=== PATIENT | female | born 2000 | race Hispanic/Latino ===

== ENCOUNTER 2020-05-28 05:43 | Day surgery (SDC) | payer OTHER ==
[2020-05-23 12:03] LABS: BASOPHILS % (AUTO) 0.5 % (0.0-5.0); EOSINOPHILS % (AUTO) 1.2 % (0.0-8.0); HEMATOCRIT 42.1 % (36-48); LYMPHOCYTES % (AUTO) 14.5 % (21.0-51.0); MEAN CORPUSCULAR HEMOGLOBIN 27.1 pg (27.0-33.0); MEAN CORPUSCULAR HGB CONC 32.5 g/dL (32.0-36.0); MEAN CORPUSCULAR VOLUME 83.4 fL (79-99); MONOCYTES % (AUTO) 5.2 % (3.0-13.0); NEUTROPHILS % (AUTO) 78.2 % (40.0-77.0); PLATELET COUNT (AUTO) 343 K/uL (130-400); RED BLOOD CELL COUNT(AUTO) 5.05 MIL/uL (4.00-5.50); RED CELL DISTRIBUTION WIDTH 13.6 % (11.0-15.5); WHITE BLOOD COUNT (AUTO) 12.9 K/uL (4.8-10.8)
[2020-05-24 11:26] VITALS: BP 137/81
--- NOTE | 2020-05-27 12:44 | NUR ---
DR. MILLER NOTIFIED OF ELEVATED WBC LEVEL. INFORMED HIM PT HAD RECENT DENTAL WORK AND WAS ON AMOXICILLIN. NO NEW ORDERS. OK TO PROCEED.
[~2020-05-28] VITALS: Ht 165.1 cm; Wt 119.4 kg
[2020-05-28] VITALS (18 sets, daily range): BP systolic 138–161; BP diastolic 70–98
[~2020-05-28 05:43] MED LIST: AMOX500T2 PO
[2020-05-28] MEDS: LACTATED RINGERS 1000ML 1,000 ML IV SCH ×2 (07:25→10:30)
[2020-05-28] MEDS ORDERED: DEXAMETHASONE SOD PHOSPHATE 10MG/ML 1ML VIAL ONE (08:19)
[2020-05-28] MEDS ORDERED: LIDOCAINE PF 2% 5ML ABBOJECT ONE (08:19)
[2020-05-28] MEDS ORDERED: SUCCINYLCHOLINE CHLORIDE 20 MG/ML 10 ML VIAL ONE (08:19)
[2020-05-28] MEDS ORDERED: ONDANSETRON HCL 4 MG/2 ML VIAL ONE (08:20)
[2020-05-28] MEDS ORDERED: MIDAZOLAM HCL 1 MG/ML 2ML VIAL ONE (08:20)
[2020-05-28] MEDS ORDERED: PROPOFOL 10 MG/ML 20ML VIAL IV ONE ×2 (08:20→08:21)
[2020-05-28] MEDS ORDERED: GLYCOPYRROLATE 1 MG/5 ML SYRINGE ONE (08:20)
[2020-05-28] MEDS ORDERED: NEOSTIGMINE 5MG/5ML SYR IV ONE (08:20)
[2020-05-28] MEDS ORDERED: ROCURONIUM 10MG/1ML SYR 10 MG/ML ML ONE ×2 (08:20→09:44)
[2020-05-28] MEDS ORDERED: FENTANYL CITRATE PF 50 MCG/1 ML 2ML VIAL ONE ×4 (08:21→10:08)
--- NOTE | 2020-05-28 12:10 | NUR ---
REPORT RECEIVED PT AND REPORT FROM [facility]. PT IN NO DISTRESS AT THIS TIME. ORIENTED TO ROOM AND CALL LIGHT. PT INSTRUCTED TO CALL FOR ASSISTANCE AND VOICED UNDERSTANDING. PT HAS BANDAIDS X4 TO ABDOMEN CLEAN AND DRY AT THIS TIME. WILL CONTINUE TO MONITOR PT
--- NOTE | 2020-05-28 13:00 | NUR ---
DISCHARGE PT AND SIGNIFICANT OTHER GIVEN DISCHARGE INSTRUCTIONS AND BOTH VOICED UNDERSTANDING. SCRIPT GIVEN. SURGICAL SITES FREE FROM BLEEDING AND BANDAIDS X4 DRY AND INTACT. PT TAKEN OUT VIA W/C BY [facility] IN NO DISTRESS
== END 2020-05-28 13:00 | disposition home or self-care (01) ==
LOC: DAH 05:43
PROVIDERS: ATTEND Obstetrics & Gynecology
DX: N70.11 Chronic salpingitis (principal); D27.1 Benign neoplasm of left ovary; N73.6 Female pelvic peritoneal adhesions (postinfective); E66.01 Morbid (severe) obesity due to excess calories; I10 Essential (primary) hypertension; E78.5 Hyperlipidemia, unspecified; E11.9 Type 2 diabetes mellitus without complications; M06.9 Rheumatoid arthritis, unspecified; Z11.59 Encounter for screening for other viral diseases; Z86.73 Personal history of transient ischemic attack (TIA), and cerebral infarction without residual deficits; Z68.41 Body mass index [BMI] 40.0-44.9, adult; Z90.49 Acquired absence of other specified parts of digestive tract
CPT/HCPCS: 36415 ×2; 58661; 58662; 84703; 85025; 86850; 86900; 86901; A4215 ×3; A4221; A4222; A4223; A4344; A4351; A4606; A4649; A4663; A6260; C1769 ×4; J0330; J1100; J2001; J2250; J2405; J2704 ×2; J2710; J3010 ×4; J3490; J7030; J7120 ×2; U0003

== ENCOUNTER 2025-09-09 18:58 | Inpatient (IN) | payer OTHER ==
[~2025-09-09] VITALS: Ht 165.1 cm; Wt 119.7 kg
[~2025-09-09 18:58] MED LIST changes: +0.9%NACL 50ML IV SCH
--- NOTE | 2025-09-09 19:14 | ERN ---
ED Note History of Present Illness Stated Complaint: ABD PAIN Chief Complaint: Abdominal Pain Time Seen by MD: 19:05 Dictation: PATIENT IS A 25-YEAR-OLD FEMALE COMING IN TODAY WITH EPIGASTRIC PAIN AND RIGHT FLANK PAIN THAT RADIATES TO EPIGASTRIC AND RIGHT LOWER QUADRANT ONSET LAST NIGHT AT 01:00. SHE STATES SHE HAD GONE TO SLEEP WHEN IT WOKE HER UP WITH A VOMITING IN THE PAIN. SHE STATES IT HAS BEEN INTERMITTENT AND COLICKY. SHE DENIES FEVER CHILLS NO DIARRHEA. Allergies: Coded Allergies: No Known Drug Allergies (Verified Allergy, Unknown, 05/23/20) Home Meds Reported Medications Amoxicillin (Amoxicillin) 500 Mg Tablet, 500 MG PO TID for RECENT TOOTH EXTRACTION for 10 Days, TAB 05/27/20 Past Medical History Past Medical History: No Pertinent History Surgical History: Appendectomy, BTL LMP: Sep 02, 2025 RN Note Reviewed/Agreed w/PFSH: Yes Review of System Dictation CONSTITUTIONAL: NEGATIVE EXCEPT FOR HPI HEAD/FACE: NEGATIVE EXCEPT FOR HPI EENT: NEGATIVE EXCEPT FOR HPI RESPIRATORY: NEGATIVE EXCEPT FOR HPI GASTROINTESTINAL/ABDOMINAL: NEGATIVE EXCEPT FOR HPI EPIGASTRIC PAIN WITH RIGHT FLANK PAIN THAT RADIATES TO RIGHT UPPER AND LOWER QUADRANT NAUSEA AND VOMITING GENITOURINARY: NEGATIVE EXCEPT FOR HPI MUSCULOSKELETAL: NEGATIVE EXCEPT FOR HPI INTEGUMENTARY: NEGATIVE EXCEPT FOR HPI NEUROLOGICAL/PSYCH: NEGATIVE EXCEPT FOR HPI HEMATOLOGIC/LYMPHATIC: NEGATIVE EXCEPT FOR HPI ALL SYSTEMS NEGATIVE, EXCEPT NOTED ABOVE. 13 POINT REVIEW OF SYSTEMS ASSESSED AND ALL NEGATIVE EXCEPT FOR ABOVE. Initial Vital Sign VS Vital Signs Date Time Temp Pulse Resp B/P (MAP) Pulse Ox O2 Delivery O2 Flow Rate FiO2 09/09/25 19:05 98.1 60 20 141/63 99 Room Air 09/09/25 19:12 0 21 Physical Exam Dictation VITAL SIGNS REVIEWED GENERAL APPEARANCE: ALERT, ORIENTED X 3, MODERATE TO SEVERE ACUTE DISTRESS, WELL DEVELOPED, NOURISHED. OBESE HEAD AND FACE: NON-TRAUMATIC. EYES: PERRL, PINK CONJUNCTIVAS, EYELID NO TRAUMA, ANTERIOR CHAMBER WITH ARCUS SENILIS. EARS: PINNAS INTACT AND NO SIGNS OF TRAUMA OR ERYTHEMA EAR CANALS CLEAR AND NO DISCHARGE TM NO ERYTHEMA NOSE: NO DISCHARGE, NO BLEEDING. OROPHARYNX: MOUTH NORMAL, TONGUE PINK, PHARYNX CLEAR,NO ERYTHEMA, TONSILS NO EXUDATES, NO ABSCESSES NOTED, MUCOUS MEMBRANE MOIST NECK: SUPPLE, NON-TENDER, NO THYROMEGALY, NO MASSES, NO JVD, NO BRUITS BREAST:DEFERRED CHEST:NO TENDERNESS, NO CREPITUS, NO PARADOXICAL MOVEMENT, NO RETRACTIONS LUNGS:CLEAR, WELL-VENTILATED, SYMMETRIC, NO RALES, NO WHEEZING, NO RHONCHI, NO STRIDOR, GOOD BREATH SOUNDS BILATERALLY HEART: REGULAR RATE, REGULAR RHYTHM, NO MURMUR, NO GALLOPS VASCULAR: NO PERIPHERAL EDEMA, ABDOMEN: SOFT, POSITIVE BOWEL SOUNDS, NONDISTENDED, NO GUARDING, MODERATE EPIGASTRIC TENDERNESS WITH PALPATION. POSITIVE RIGHT CVAT RECTAL: DEFERRED GENITAL: DEFERRED NEUROLOGICAL: NORMAL SPEECH, MOTOR FUNCTION INTACT, SENSORY FUNCTION INTACT MUSCULOSKELETAL: NECK NONTENDER, FULL RANGE OF MOTION, BACK NONTENDER, FULL RANGE OF MOTION, EXTREMITIES: NONTENDER, FULL RANGE OF MOTION SKIN: COLOR PINK, DRY, NO TURGOR, NO RASH, NO LACERATIONS, NO ABRASIONS, NO CONTUSIONS. LYMPHATIC: DEFERRED Results (Laboratory/Radiology) Laboratory/Radiology Laboratory Tests Test 09/09/25 19:10 09/09/25 19:20 09/09/25 20:14 Urine Color YELLOW (YELLOW) Urine Appearance CLEAR (CLEAR) Urine pH 6.0 (5.0-8.0) Urine Specific Ross 1.033 (1.001-1.031) Urine Protein 20 mg/dL (NEGATIVE) H Urine Glucose (UA) NEGATIVE mg/dL (NEGATIVE) Urine Ketones NEGATIVE mg/dL (NEGATIVE) Urine Occult Blood SMALL (NEGATIVE) H Urine Nitrate NEGATIVE (NEGATIVE) Urine Bilirubin NEGATIVE mg/dL (NEGATIVE) Urine Urobilinogen 0.2 mg/dL (0.2-1.0) Urine Leukocyte Esterase NEGATIVE Romy/uL Urine RBC 6-10 /HPF (0-1) H Urine WBC 2-5 /HPF (0-1) H Urine Squamous Epithelial Cells FEW /HPF (0-2) Urine Bacteria RARE /HPF (None Seen) White Blood Count 17.2 K/uL (4.8-10.8) H Red Blood Count 4.94 MIL/uL (4.00-5.50) Hemoglobin 13.2 g/dL (12.0-16.0) Hematocrit 39.3 % (36-48) Mean Corpuscular Volume 79.6 fL (79-99) Mean Corpuscular Hemoglobin 26.7 pg (27.0-33.0) L Mean Corpuscular Hemoglobin Concent 33.6 g/dL (32.0-36.0) Red Cell Distribution Width 13.6 % (11.0-15.5) Platelet Count 406 K/uL (130-400) H Mean Platelet Volume 11.3 fL (7.5-10.5) H Immature Granulocyte % (Auto) 0.3 % (0-1) Neutrophils (%) (Auto) 80.1 % (40.0-77.0) H Lymphocytes (%) (Auto) 13.2 % (21.0-51.0) L Monocytes (%) (Auto) 5.5 % (3.0-13.0) Eosinophils (%) (Auto) 0.6 % (0.0-8.0) Basophils (%) (Auto) 0.3 % (0.0-5.0) Neutrophils # (Auto) 13.7 K/uL (1.8-7.7) H Lymphocytes # (Auto) 2.3 K/uL (1.0-4.8) Monocytes # (Auto) 0.9 K/uL (0.1-1.0) Eosinophils # (Auto) 0.11 K/uL (0.00-0.70) Basophils # (Auto) 0.06 K/uL (0.00-0.20) Absolute Immature Granulocyte (auto 0.05 K/uL (0-1) Nucleated Red Blood Cells 0.0 % (0.0-0.19) Sodium Level 139 mmol/L (136-145) Potassium Level 3.3 mmol/L (3.5-5.1) L Chloride Level 103 mmol/L (101-111) Carbon Dioxide Level 29 mmol/L (21-32) Blood Urea Nitrogen 8 mg/dL (7-18) Creatinine 0.6 mg/dL (0.5-1.0) Glomerular Filtration Rate Calc 126 mL/min (>90) Random Glucose 114 mg/dL (70-105) H Total Calcium 9.2 mg/dL (8.5-10.1) Lipase 29 U/L (16-77) Serum Test, Qualitative NEGATIVE (NEGATIVE) Lactic Acid Level 1.8 mmol/L (0.8-2.5) Total Bilirubin 0.6 mg/dL (0.2-1.0) Direct Bilirubin 0.1 mg/dL (0.0-0.3) Aspartate Amino Transf (AST/SGOT) 30 U/L (10-37) Alanine Aminotransferase (ALT/SGPT) 30 U/L (12-78) Alkaline Phosphatase 79 U/L (50-136) Total Protein 7.4 g/dL (6.0-8.3) Albumin 3.6 g/dL (3.5-5.0) REASON: RIGHT FLANK PAIN THAT RADIATES TO EPIGASTRIC AND RIGHT LOWER QUADRANT ORDERING PHYSICIAN: ADDY RAMOS FRONT END ARCHITECT PROCEDURE: ABD PEL WO - CT ABDOMEN/PELVIS W/O CONTRAST EXAM: CT Abdomen and Pelvis Without IV Contrast. CLINICAL HISTORY: Patient presents with right flank pain radiating to the epigastric and right lower quadrants. TECHNIQUE: Axial computed tomography images of the abdomen and pelvis were obtained without intravenous contrast. CONTRAST: No IV contrast administered. COMPARISON: None provided. FINDINGS: LUNG BASES: Clear. No pleural effusion. LIVER: Mild hepatomegaly with the right hepatic lobe measuring up to 24.6 cm in craniocaudal dimension. Diffuse hepatic steatosis. A 2.2 ??? 1.5 ??? 2.3 cm peripheral isodense lesion in the right hepatic lobe, likely representing focal fatty sparing. GALLBLADDER AND BILE DUCTS: Mild diffuse gallbladder wall thickening and pericholecystic fatty stranding and heterogeneous gallbladder contents, concerning acute cholecystitis, no radiodense calculus is evident. No biliary ductal dilatation. PANCREAS: Normal in size and contour. SPLEEN: Normal. ADRENAL GLANDS: Normal bilaterally. KIDNEYS, URETERS, AND BLADDER: Left renal simple cortical cyst measuring 1.0 cm in the interpole region. No hydronephrosis or calculi. Urinary bladder is suboptimally distended with mild wall thickening. STOMACH AND BOWEL: Uncomplicated colonic diverticula. Circumferential mural thickening of the descending and sigmoid colon, likely related to underdistention. No bowel obstruction. APPENDIX: Normal in caliber. PERITONEUM: Small pericholecystic fluid. No free intraperitoneal air. LYMPH NODES: No lymphadenopathy. REPRODUCTIVE: Unremarkable as visualized. VASCULATURE: Abdominal aorta of normal caliber. BONES: No acute osseous abnormality. IMPRESSION: Mild diffuse gallbladder wall thickening and pericholecystic fatty stranding and heterogeneous gallbladder contents, concerning acute cholecystitis, no radiodense calculus is evident. Recommend an ultrasound of the gallbladder for an optimal evaluation. Mild hepatomegaly with diffuse hepatic steatosis. Peripheral right hepatic lobe lesion likely representing focal fatty sparing. Left renal simple cortical cyst. Uncomplicated colonic diverticulosis. Mild bladder wall thickening, possibly secondary to underdistention or cystitis. Clinical correlation is advised. /[facility] Labs Reviewed?: Yes ED Course ED Course Orders Procedure Category Date Status Time Testing, LAB 09/09/25 Complete Serum Hcg 19:09 Cbc With Differential LAB 09/09/25 Complete 19:09 Urinalysis Profile LAB 09/09/25 Complete 19:09 0.9%Nacl 1000ml (Ns PHA 09/09/25 Complete 1000ml) 19:30 Morphine 2mg Syg PHA 09/09/25 Complete (Morphine 2mg Syg) 19:30 Ondansetron 4mg Inj PHA 09/09/25 Complete (Zofran 4mg Inj) 19:30 Famotidine 20mg Vial PHA 09/09/25 Complete (Pepcid 20mg Vial) 19:30 Ct Abdomen/Pelvis W/O CT 09/09/25 Resulted Contrast 19:09 Lipase LAB 09/09/25 Complete 19:09 Basic Metabolic Panel LAB 09/09/25 Complete 19:09 Blood Cult CAROLINE 09/09/25 In Process 19:27 Lactic Acid LAB 09/09/25 Complete 19:27 Zosyn 3.375gm+Ns 50ml PHA 09/09/25 Complete (Zosyn 3.375gm+Ns 20:00 Hepatic Function Panel LAB 09/09/25 Complete 20:10 Us Abdominal Ruq\Ltd US 09/09/25 Taken 21:32 Morphine 4mg Syg PHA 09/09/25 Complete (Morphine 4mg Syg) 22:30 Current Medications Medications (Trade) Dose Ordered Sig/Farrukh Route PRN Reason Start Time Stop Time Status Last Admin Dose Admin Famotidine (Pepcid 20mg Vial) 20 mg ONCE ONCE IV 09/09/25 19:30 09/09/25 19:31 DC 09/09/25 19:23 Morphine Sulfate (morPHINE 2MG SYG) 2 mg ONCE ONCE IVP 09/09/25 19:30 09/09/25 19:31 DC 09/09/25 19:24 Morphine Sulfate (morPHINE 4MG SYG) 4 mg ONCE ONCE IVP 09/09/25 22:30 09/09/25 22:31 DC 09/09/25 22:19 Ondansetron HCl (zoFRAN 4MG INJ) 4 mg ONCE ONCE IVP 09/09/25 19:30 09/09/25 19:31 DC 09/09/25 19:23 Piperacillin Sod/ Tazobactam Sod (Zosyn 3.375gm+NS 50ml) 3.375 gm ONCE ONCE IVPB 09/09/25 20:00 09/09/25 20:01 DC 09/09/25 19:42 Sodium Chloride 1,000 ml @ 0 mls/hr ONCE ONCE IV 09/09/25 19:30 09/09/25 19:31 DC 09/09/25 19:24 Vital Signs Date Time Temp Pulse Resp B/P (MAP) Pulse Ox O2 Delivery O2 Flow Rate FiO2 09/09/25 21:45 98.1 71 18 137/72 98 Room Air* 0 21 09/09/25 20:43 98.1 68 19 128/63 99 Room Air* 0 21 09/09/25 19:12 98.1 60 20 141/63 99 Room Air* 0 21 09/09/25 19:05 98.1 60 20 141/63 99 Room Air Medical Decision Making MDM MDM: The patient is a 25-year-old female who presents to the emergency department with complaints of epigastric and right upper abdominal pain associated with nausea nonbloody vomiting onset last night around 1:00 a.m.. Differential diagnosis: Gastritis, cholecystitis, cholelithiasis, sepsis BC showed leukocytosis, no anemia, chemistry showed mild hypokalemia, negative lipase, negative liver enzymes, negative , urinalysis unremarkable. CT abdomen showed diffuse wall thickening and pericholecystic fatty stranding concerning for acute cholecystitis. Admitted for further evaluation and management. Comorbidities: , BTL, appendectomy Tests considered and not ordered secondary to shared decision making include: none Previous outside records reviewed: none Risk of complication and/or morbidity or mortality of patient management: The patient meets criteria for admission. Need for emergency major/minor surgery: No There are no social concerns with this patient. I independently interpreted the tests I ordered (labs, urinalysis, etc.). I discussed the case with the hospitalist for admission. who accepts admission I discussed the case with the following specialists: none. Historian: pateint. I independently interpreted imaging studies and EKGs that I ordered (US, CT, XR, EKG, etc.). External chart review: none. Medical management and examination interpretation discussions were had by me with other qualified healthcare professionals as indicated for the patient's care. DX & DISP Disposition: Inpatient Decision to Admit Date: Sep 09, 2025 Decision to Admit Time: 22:36 Departure Impression: Primary Impression: Acute cholecystitis Additional Impressions: Leukocytosis, Abdominal pain Condition: Stable Referrals: HEAVEN VELEZ MD (PCP) Time of Disposition: 22:37 I have reviewed the case, and I agree with, Diagnosis and Plan ADDY RAMOS FRONT END ARCHITECT Sep 09, 2025 19:14 LAMIN TOMLIN FRONT END ARCHITECT Sep 09, 2025 22:37
[2025-09-09 19:17] LABS: ADD UA MICROSCOPIC YES; APPEARANCE,URINE CLEAR (CLEAR); GLUCOSE, URINE (UA) NEGATIVE (NEGATIVE); LEUKOCYTE ESTERASE ,URINE NEGATIVE Leu/uL (NEGATIVE); NITRATE,URINE NEGATIVE (NEGATIVE); OCCULT BLOOD,URINE SMALL (NEGATIVE)
[2025-09-09 19:20] LABS: SQUAMOUS EPITHELIAL CELL,UR FEW /HPF (0-2)
--- NOTE | 2025-09-09 19:20 | NUR ---
PENDING TEST RESULTS FOR CT EXAM.
[2025-09-09] MEDS: FAMOTIDINE 20MG VIAL IV ONE (19:23)
[2025-09-09] MEDS: 0.9%NACL 1000ML 1,000 ML IV ONE (19:24)
[2025-09-09 19:26] LABS: IMMATURE GRANULOCYTE ABSOLUTE 0.05 K/uL (0-1); NUCLEATED RED BLOOD CELLS 0.0 % (0.0-0.19); PLATELET COUNT (AUTO) 406 K/uL (130-400); RED BLOOD CELL COUNT(AUTO) 4.94 MIL/uL (4.00-5.50); RED CELL DISTRIBUTION WIDTH 13.6 % (11.0-15.5); WHITE BLOOD COUNT (AUTO) 17.2 K/uL (4.8-10.8)
[2025-09-09 19:37] LABS: CREATININE 0.6 mg/dL (0.5-1.0); GLOMERULAR FILTR. RATE CALC 126.0 mL/min (>90); GLUCOSE,RANDOM 114.0 mg/dL (70-105); SODIUM SERUM 139.0 mmol/L (136-145); UREA NITROGEN, BLOOD 8.0 mg/dL (7-18)
[2025-09-09] MEDS: ZOSYN 3.375GM +NS 50ML IVPB ONE (19:42)
--- NOTE | 2025-09-09 19:56 | NUR ---
CULTURES DRAWN BEFORE ANTIBIOTICS GIVEN
[2025-09-09 20:36] LABS: ASPARTATE AMINOTRANSFERASE 30.0 U/L (10-37); TOTAL PROTEIN, SERUM 7.4 g/dL (6.0-8.3)
--- NOTE | 2025-09-09 21:14 | HMCIMG ---
EXAM: CT Abdomen and Pelvis Without IV Contrast. CLINICAL HISTORY: Patient presents with right flank pain radiating to the epigastric and right lower quadrants. TECHNIQUE: Axial computed tomography images of the abdomen and pelvis were obtained without intravenous contrast. CONTRAST: No IV contrast administered. COMPARISON: None provided. FINDINGS: LUNG BASES: Clear. No pleural effusion. LIVER: Mild hepatomegaly with the right hepatic lobe measuring up to 24.6 cm in craniocaudal dimension. Diffuse hepatic steatosis. A 2.2 ??? 1.5 ??? 2.3 cm peripheral isodense lesion in the right hepatic lobe, likely representing focal fatty sparing. GALLBLADDER AND BILE DUCTS: Mild diffuse gallbladder wall thickening and pericholecystic fatty stranding and heterogeneous gallbladder contents, concerning acute cholecystitis, no radiodense calculus is evident. No biliary ductal dilatation. PANCREAS: Normal in size and contour. SPLEEN: Normal. ADRENAL GLANDS: Normal bilaterally. KIDNEYS, URETERS, AND BLADDER: Left renal simple cortical cyst measuring 1.0 cm in the interpole region. No hydronephrosis or calculi. Urinary bladder is suboptimally distended with mild wall thickening. STOMACH AND BOWEL: Uncomplicated colonic diverticula. Circumferential mural thickening of the descending and sigmoid colon, likely related to underdistention. No bowel obstruction. APPENDIX: Normal in caliber. PERITONEUM: Small pericholecystic fluid. No free intraperitoneal air. LYMPH NODES: No lymphadenopathy. REPRODUCTIVE: Unremarkable as visualized. VASCULATURE: Abdominal aorta of normal caliber. BONES: No acute osseous abnormality. IMPRESSION: Mild diffuse gallbladder wall thickening and pericholecystic fatty stranding and heterogeneous gallbladder contents, concerning acute cholecystitis, no radiodense calculus is evident. Recommend an ultrasound of the gallbladder for an optimal evaluation. Mild hepatomegaly with diffuse hepatic steatosis. Peripheral right hepatic lobe lesion likely representing focal fatty sparing. Left renal simple cortical cyst. Uncomplicated colonic diverticulosis. Mild bladder wall thickening, possibly secondary to underdistention or cystitis. Clinical correlation is advised. /[place]
--- NOTE | 2025-09-09 23:10 | HMCIMG ---
EXAMINATION: Ultrasound of the Abdomen (limited) with Color Doppler. CLINICAL HISTORY: Right flank pain that radiates to the epigastric and right lower quadrant. COMPARISON: CT abdomen and pelvis without contrast from the same day. TECHNIQUE: Real-time grayscale ultrasound images of the abdomen. In addition, color Doppler is medically necessary to perform in order to evaluate vascularity and blood flow. FINDINGS: Liver: Bulky in caliber, the right hepatic lobe measures 18.8 cm in the craniocaudal dimension. There is increased echogenicity of the hepatic parenchyma. There is no focal hepatic abnormality or intrahepatic biliary ductal dilatation. There is a normal spectral Doppler of the main portal vein. Gallbladder: There is normal wall thickness (0.28 cm) with possible small pericholecystic fluid. There are multiple calculi, the largest measures 1.4 cm. The common bile duct is normal in caliber, measuring 0.4 cm. Pancreas: Head and body appear normal in caliber and echotexture. No calcification or dilated pancreatic duct. The tail is obscured by overlying bowel gas. The right kidney is normal in caliber, and the right kidney measures 11.3 x 5.2 x 5.7 cm in craniocaudal, AP, and transverse dimensions, respectively. There is normal renal cortical thickness and cortical echogenicity. There is no renal calculus or hydronephrosis. IMPRESSION: Cholelithiasis with possible small pericholecystic fluid, of concern for cholecystitis. Hepatomegaly with hepatic steatosis. /[place]
[2025-09-09] MEDS: 1/2 NS 1000ML 1,000 ML IV SCH (23:40)
[2025-09-09 23:58] VITALS: BP 129/85; PULSE 54; RESP 16; TEMP 98.1
[2025-09-10] VITALS (23 sets, daily range): BP systolic 120–147; BP diastolic 57–78; PULSE 46–68; RESP 16–24; TEMP 97.6–98.1; O2SAT 100
[2025-09-10] MEDS: ZOSYN 3.375GM +NS 50ML IVPB SCH (05:37)
[2025-09-10 07:36] LABS: ASPARTATE AMINOTRANSFERASE 117.0 U/L (10-37); CREATININE 0.6 mg/dL (0.5-1.0); GLOMERULAR FILTR. RATE CALC 126.0 mL/min (>90); GLUCOSE,RANDOM 112.0 mg/dL (70-105); SODIUM SERUM 142.0 mmol/L (136-145); TOTAL PROTEIN, SERUM 7.3 g/dL (6.0-8.3); UREA NITROGEN, BLOOD 9.0 mg/dL (7-18)
[2025-09-10] MEDS ORDERED: MAGNESIUM 2GM PREMIX 50ML 50 ML IV PRN (08:00)
--- NOTE | 2025-09-10 08:02 | CONS ---
GENERAL SURGERY CONSULTATION NOTE Date/Time Patient Seen: [09/10/2025 ] Requesting Physician: [Dr. Baez ] Reason for Consultation: [Cholecystitis ] History of Present Illness: [Patient presents to this facility for evaluation of epigastric and right upper quadrant abdominal pain radiating to her back that began yesterday at 1:00 a.m. patient states that she was sleeping when she woke up due to this abdominal pain. Patient reports associated symptoms of nausea and multiple episodes of nonbilious, non bloody emesis. She denies fever, chills, melena, hematochezia, and hematuria. Patient denies any prior similar episodes in the past and recent trauma. Prior to symptom onset, patient states that she was tolerating a regular diet and having normal bowel movements. On admission, laboratory review demonstrates a WBC 17.2, H&H 13.2 and 39.3, T. bili 0.6, AST 117, ALT 137, and Alk Phosphatase 104. CT of the abdomen and pelvis and abdominal ultrasound demonstrated cholelithiasis with pericholecystic fluid concerning for cholecystitis. Patient reports a past surgical history of appendectomy and bilateral tubal ligation.] Past Medical History: [No pertinent history] Past Surgical History: [Appendectomy and BTL] Family History: [Denies ] Habits: [Never] smoker. [Denies] alcohol consumption. [Denies] illicit drug use Current Medications Medications (Trade) Dose Ordered Sig/Farrukh Route Start Time Stop Time Status Last Admin Dose Admin Heparin Sodium (Porcine) (HEParin 5,000 UNIT VIAL) 5,000 unit Q12H SQ 09/09/25 23:00 10/09/25 22:59 09/09/25 23:40 5,000 UNIT Pantoprazole Sodium (PROTonix 40MG INJ) 40 mg DAILY IVP 09/10/25 09:00 10/10/25 08:59 Piperacillin Sod/ Tazobactam Sod (Zosyn 3.375gm+NS 50ml) 3.375 gm Q8H IVPB 09/10/25 06:00 09/20/25 05:59 09/10/25 05:37 3.375 GM Sodium Chloride 1,000 ml @ 125 mls/hr Q8H IV 09/09/25 23:00 10/09/25 22:59 09/09/25 23:40 125 MLS/HR Sodium Chloride (NS 50ml) 50 ml AD IV 09/09/25 04:00 09/10/25 07:35 DC Review of Systems: 14 review of systems negative except for as mentioned in the history of present illness Physical Examination: GENERAL: [No acute distress, nontoxic appearing] HEAD: [Normocephalic, atraumatic] EYES: [Extraocular movements are intact, sclerae white] ENT: [Hearing grossly intact, normal oropharynx.] NECK: [Supple, thyromegaly] LUNGS: [Unlabored breathing] HEART: [Regular rate and rhythm] VASC: [No edema. Peripheral pulses normal and equal in all extremities] ABD: [Soft, tender to epigastric and right upper quadrant, +Fuentes's sign] LYMPH: [No lymphadenopathy noted.] EXT: [Normal ROM, no joint swelling, no clubbing, cyanosis or edema.] SKIN: [No rashes or lesions noted.] NEURO: [Awake, alert, and oriented x3.] Vital Signs (last 8hr) Date Time Temp Pulse Resp B/P (MAP) Pulse Ox O2 Delivery O2 Flow Rate FiO2 09/10/25 07:37 97.9 51 19 134/71 100 Room Air 09/10/25 04:00 97.5 52 16 126/66 95 Room Air 09/09/25 23:58 98.1 54 16 129/85 99 Room Air Laboratory: [ ] Hematology Labs: Test 09/09/25 19:20 Range/Units White Blood Count 17.2 H 4.8-10.8 K/uL Red Blood Count 4.94 4.00-5.50 MIL/uL Hemoglobin 13.2 12.0-16.0 g/dL Hematocrit 39.3 36-48 % Mean Corpuscular Volume 79.6 79-99 fL Mean Corpuscular Hemoglobin 26.7 L 27.0-33.0 pg Mean Corpuscular Hemoglobin Concent 33.6 32.0-36.0 g/dL Red Cell Distribution Width 13.6 11.0-15.5 % Platelet Count 406 H 130-400 K/uL Mean Platelet Volume 11.3 H 7.5-10.5 fL Immature Granulocyte % (Auto) 0.3 0-1 % Neutrophils (%) (Auto) 80.1 H 40.0-77.0 % Lymphocytes (%) (Auto) 13.2 L 21.0-51.0 % Monocytes (%) (Auto) 5.5 3.0-13.0 % Eosinophils (%) (Auto) 0.6 0.0-8.0 % Basophils (%) (Auto) 0.3 0.0-5.0 % Neutrophils # (Auto) 13.7 H 1.8-7.7 K/uL Lymphocytes # (Auto) 2.3 1.0-4.8 K/uL Monocytes # (Auto) 0.9 0.1-1.0 K/uL Eosinophils # (Auto) 0.11 0.00-0.70 K/uL Basophils # (Auto) 0.06 0.00-0.20 K/uL Absolute Immature Granulocyte (auto 0.05 0-1 K/uL Nucleated Red Blood Cells 0.0 0.0-0.19 % Chemistry Labs: Test 09/10/25 07:13 09/09/25 20:14 09/09/25 19:20 Range/Units Sodium Level 142 136-145 mmol/L Potassium Level 3.2 L 3.5-5.1 mmol/L Chloride Level 103 101-111 mmol/L Carbon Dioxide Level 32 21-32 mmol/L Blood Urea Nitrogen 9 7-18 mg/dL Creatinine 0.6 0.5-1.0 mg/dL Glomerular Filtration Rate Calc 126 >90 mL/min Random Glucose 112 H 70-105 mg/dL Total Calcium 8.7 8.5-10.1 mg/dL Magnesium Level 2.20 1.80-2.40 mg/dL Total Bilirubin 0.6 0.2-1.0 mg/dL Aspartate Amino Transf (AST/SGOT) 117 H 10-37 U/L Alanine Aminotransferase (ALT/SGPT) 137 #H 12-78 U/L Alkaline Phosphatase 104 # 50-136 U/L Total Protein 7.3 6.0-8.3 g/dL Albumin 3.4 L 3.5-5.0 g/dL Lipase 56 16-77 U/L Lactic Acid Level 1.8 0.8-2.5 mmol/L Direct Bilirubin 0.1 0.0-0.3 mg/dL Serum Test, Qualitative NEGATIVE NEGATIVE Diagnostics / Radiology: [EXAMINATION: Ultrasound of the Abdomen (limited) with Color Doppler. CLINICAL HISTORY: Right flank pain that radiates to the epigastric and right lower quadrant. COMPARISON: CT abdomen and pelvis without contrast from the same day. TECHNIQUE: Real-time grayscale ultrasound images of the abdomen. In addition, color Doppler is medically necessary to perform in order to evaluate vascularity and blood flow. FINDINGS: Liver: Bulky in caliber, the right hepatic lobe measures 18.8 cm in the craniocaudal dimension. There is increased echogenicity of the hepatic parenchyma. There is no focal hepatic abnormality or intrahepatic biliary ductal dilatation. There is a normal spectral Doppler of the main portal vein. Gallbladder: There is normal wall thickness (0.28 cm) with possible small pericholecystic fluid. There are multiple calculi, the largest measures 1.4 cm. The common bile duct is normal in caliber, measuring 0.4 cm. Pancreas: Head and body appear normal in caliber and echotexture. No calcification or dilated pancreatic duct. The tail is obscured by overlying bowel gas. The right kidney is normal in caliber, and the right kidney measures 11.3 x 5.2 x 5.7 cm in craniocaudal, AP, and transverse dimensions, respectively. There is normal renal cortical thickness and cortical echogenicity. There is no renal calculus or hydronephrosis. IMPRESSION: Cholelithiasis with possible small pericholecystic fluid, of concern for cholecystitis. Hepatomegaly with hepatic steatosis. /Eastern EXAM: CT Abdomen and Pelvis Without IV Contrast. CLINICAL HISTORY: Patient presents with right flank pain radiating to the epigastric and right lower quadrants. TECHNIQUE: Axial computed tomography images of the abdomen and pelvis were obtained without intravenous contrast. CONTRAST: No IV contrast administered. COMPARISON: None provided. FINDINGS: LUNG BASES: Clear. No pleural effusion. LIVER: Mild hepatomegaly with the right hepatic lobe measuring up to 24.6 cm in craniocaudal dimension. Diffuse hepatic steatosis. A 2.2 ??? 1.5 ??? 2.3 cm peripheral isodense lesion in the right hepatic lobe, likely representing focal fatty sparing. GALLBLADDER AND BILE DUCTS: Mild diffuse gallbladder wall thickening and pericholecystic fatty stranding and heterogeneous gallbladder contents, concerning acute cholecystitis, no radiodense calculus is evident. No biliary ductal dilatation. PANCREAS: Normal in size and contour. SPLEEN: Normal. ADRENAL GLANDS: Normal bilaterally. KIDNEYS, URETERS, AND BLADDER: Left renal simple cortical cyst measuring 1.0 cm in the interpole region. No hydronephrosis or calculi. Urinary bladder is suboptimally distended with mild wall thickening. STOMACH AND BOWEL: Uncomplicated colonic diverticula. Circumferential mural thickening of the descending and sigmoid colon, likely related to underdistention. No bowel obstruction. APPENDIX: Normal in caliber. PERITONEUM: Small pericholecystic fluid. No free intraperitoneal air. LYMPH NODES: No lymphadenopathy. REPRODUCTIVE: Unremarkable as visualized. VASCULATURE: Abdominal aorta of normal caliber. BONES: No acute osseous abnormality. IMPRESSION: Mild diffuse gallbladder wall thickening and pericholecystic fatty stranding and heterogeneous gallbladder contents, concerning acute cholecystitis, no radiodense calculus is evident. Recommend an ultrasound of the gallbladder for an optimal evaluation. Mild hepatomegaly with diffuse hepatic steatosis. Peripheral right hepatic lobe lesion likely representing focal fatty sparing. Left renal simple cortical cyst. Uncomplicated colonic diverticulosis. Mild bladder wall thickening, possibly secondary to underdistention or cystitis. Clinical correlation is advised. /Eastern ] Assessment: [Cholelithiasis with cholecystitis ] Plan: [Plan is for laparoscopic cholecystectomy with IOC, possible open in the OR today. Risks associated with the procedure including but not limited to infection, bleeding, and injury to surrounding structures were discussed with the patient detail. Patient verbalized understanding and agrees with the plan. ] Above patient's assessment and plan was discussed with my attending physician, Dr. Gomez. Patient presented to the hospital with complaints of abdominal pain starting yesterday. Pain progressively gotten worse. Pain is located in the epigastrium and right upper quadrant. Associated with the pain with some nausea. Complete workup in the emergency room including imaging studies shows cholecystitis. Patient's primary care physician who admitted her call me directly discussed the case with me. Based on current findings of the imaging studies, physical exam and the discussion with the primary care physician I think patient would benefit from a laparoscopic cholecystectomy with intraoperative cholangiogram. Risks associated with the surgery not limited to infection, bleeding, injury to surrounding structures has been discussed with the patient and she indicates she understands. I personally discussed the case with my PA and agree with my PA note above. ARABELLA GARNER Sep 10, 2025 08:02 JOSIE GOMEZ MD Sep 10, 2025 12:21
[2025-09-10 08:09] LABS: IMMATURE GRANULOCYTE ABSOLUTE 0.04 K/uL (0-1); NUCLEATED RED BLOOD CELLS 0.0 % (0.0-0.19); PLATELET COUNT (AUTO) 372 K/uL (130-400); RED BLOOD CELL COUNT(AUTO) 4.50 MIL/uL (4.00-5.50); RED CELL DISTRIBUTION WIDTH 13.9 % (11.0-15.5); WHITE BLOOD COUNT (AUTO) 12.0 K/uL (4.8-10.8)
--- NOTE | 2025-09-10 09:11 | NUR ---
INFORMED CONSENT OBTAINED FOR LAP BRIANA. PATIENT CONTINUES WITH NPO STATUS
--- NOTE | 2025-09-10 10:31 | NUR ---
DCP: HOME Pt states she lives at home with her grand parents (grand mother) Scarlett Naqvi [phone]. Mother Erendira Naqvi [phone], ER contact. 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 Pt reports she does not require assistance with ADLS, ambulation, home management or meal prep. Uses no DME or in home care services. PCP is Samreen Ybarra and uses [facility] for rx services. Pt denies dc needs, states she will return home to grand parents home Addendum: 09/10/25 at 1038 by NIELS MONTESINOS Amended: Links added.
--- NOTE | 2025-09-10 11:24 | NUR ---
TAKEN OFF UNIT VIA HOSPITAL BED TO THE OR
[2025-09-10] MEDS ORDERED: IOHEXOL-350 50ML VIAL IV ONE (11:39)
[2025-09-10] MEDS ORDERED: MIDAZOLAM HCL 1 MG/ML 2ML VIAL ONE (11:46)
--- NOTE | 2025-09-10 13:23 | OP ---
Operative Note: DATE OF PROCEDURE: 09/10/25 SURGEON: JOSIE FERNÁNDEZ MD SUPERVISOR PACKING ROOM: [Alvarado Crane CFA] ANESTHESIA: [GETA] ANESTHESIOLOGIST/MARKET GARDEN WORKER: [[facility] Anesthesia Team] PREOPERATIVE DIAGNOSIS: [Cholecyctitis] POSTOPERATIVE DIAGNOSIS: [Same] SYNOPSIS: [Cholecystitis causing pt discomfort Lqp Oly with IOC #1 critical view obtained, #2 intraoperative cholangiogram with good flow of contrast from cystic duct into common bile duct, right and left hepatic duct, and duodenum noted All sponges and instrument accounted for at the end of the case PT tolerated procedure well, There were no complications] PROCEDURE: [Lqp Oly with IOC] ESTIMATED BLOOD LOSS: [less than 10cc] INDICATIONS: [chloecystitis] DESCRIPTION OF PROCEDURE: [On day of surgery patient was brought to the operating room. Positioned in the supine position. Preoperative antibiotics were given. Bilateral SCDs were placed. The patient was intubated. Patient then was prepped and draped in the usual fashion. Then a skin incision was made in the right upper quadrant. 5 mm trochars inserted under direct vision. Abdomen was insufflated to 15 mmHg. No injury to omentum or bowel is noted. A 5 mm port was placed in the umbilicus. A 12 mm port was placed in the subxiphoid position. A 5 mm port was placed in the right lateral abdomen. The gallbladder was grasped, elevated, the cystic duct and cystic artery was sequentially dissected. Critical view was obtained. An intraoperative cholang iogram was conducted by placing a clip at the distal end of the cystic duct. Ductotomy was made. A cholangiocatheter was introduced. Good flow of contrast from the cystic duct into common bile duct, right and left hepatic duct, and duodenum was noted. The Cholangiocath was removed. The cystic duct was sequentially clipped and transected. The cystic artery was then sequentially clipped and transected. The gallbladder then was dissected off the gallbladder fossa and removed an Endo Catch bag. Abdomen was irrigated. Appropriate hemostasis was noted. Then all insufflation gas was removed. Ports were removed. Local anesthetic was instilled into the incisions, and the incisions were closed with a subcuticular fashion. All sponges and instruments were accounted for at the end of the case. Patient tolerated the procedure well, there were no complications.] JOSIE FERNÁNDEZ MD Sep 10, 2025 13:23
--- NOTE | 2025-09-10 14:45 | NUR ---
RETURNED FROM OR VIA HOSPITAL BED. IN NO DISTRESS; INCISIONS APPROXIMATED AND COVERED.
--- NOTE | 2025-09-10 21:51 | HP ---
HISTORY AND PHYSICAL NOTE DATE OF CONSULTATION: 09/10/25 REASON FOR CONSULTATION: Abdominal pain HISTORY OF PRESENT ILLNESS: PATIENT IS A 25-YEAR-OLD FEMALE COMING IN TODAY WITH EPIGASTRIC PAIN AND RIGHT FLANK PAIN THAT RADIATES TO EPIGASTRIC AND RIGHT LOWER QUADRANT ONSET LAST NIGHT AT 01:00. SHE STATES SHE HAD GONE TO SLEEP WHEN IT WOKE HER UP WITH A VOMITING IN THE PAIN. SHE STATES IT HAS BEEN INTERMITTENT AND COLICKY. SHE DENIES FEVER CHILLS NO DIARRHEA. Allergies: Coded Allergies: No Known Drug Allergies (Verified Allergy, Unknown, 05/23/20) Home Meds Reported Medications Amoxicillin (Amoxicillin) 500 Mg Tablet, 500 MG PO TID for RECENT TOOTH EXTRACTION for 10 Days, TAB 05/27/20 Past Medical History Past Medical History: No Pertinent History Surgical History: Appendectomy, BTL LMP: Sep 02, 2025 RN Note Reviewed/Agreed w/PFSH: Yes Review of System Dictation CONSTITUTIONAL: NEGATIVE EXCEPT FOR HPI HEAD/FACE: NEGATIVE EXCEPT FOR HPI EENT: NEGATIVE EXCEPT FOR HPI RESPIRATORY: NEGATIVE EXCEPT FOR HPI GASTROINTESTINAL/ABDOMINAL: NEGATIVE EXCEPT FOR HPI EPIGASTRIC PAIN WITH RIGHT FLANK PAIN THAT RADIATES TO RIGHT UPPER AND LOWER QUADRANT NAUSEA AND VOMITING GENITOURINARY: NEGATIVE EXCEPT FOR HPI MUSCULOSKELETAL: NEGATIVE EXCEPT FOR HPI INTEGUMENTARY: NEGATIVE EXCEPT FOR HPI NEUROLOGICAL/PSYCH: NEGATIVE EXCEPT FOR HPI HEMATOLOGIC/LYMPHATIC: NEGATIVE EXCEPT FOR HPI ALL SYSTEMS NEGATIVE, EXCEPT NOTED ABOVE. 13 POINT REVIEW OF SYSTEMS ASSESSED AND ALL NEGATIVE EXCEPT FOR ABOVE. Initial Vital Sign VS Vital Signs Date Time Temp Pulse Resp B/P (MAP) Pulse Ox O2 Delivery O2 Flow Rate FiO2 09/09/25 19:05 98.1 60 20 141/63 99 Room Air 09/09/25 19:12 0 21 ALLERGIES: Coded Allergies: No Known Drug Allergies (Verified Allergy, Unknown, 05/23/20) HOME MEDS: Reported Medications Amoxicillin (Amoxicillin) 500 Mg Tablet, 500 MG PO TID for RECENT TOOTH EXTRACTION for 10 Days, TAB 05/27/20 INPATIENT MEDS: Current Medications Medications Dose Ordered Sig/Farrukh Start Time Stop Time Status Last Admin Sodium Chloride 1,000 ml @ 125 mls/hr Q8H 09/09/25 23:00 10/09/25 22:59 09/10/25 21:38 Piperacillin Sod/ Tazobactam Sod 3.375 gm Q8H 09/10/25 06:00 09/20/25 05:59 09/10/25 21:34 Hydromorphone HCl 0.5 mg Q3H PRN 09/09/25 23:00 09/14/25 22:59 Ondansetron HCl 4 mg Q4H PRN 09/09/25 23:00 10/09/25 22:59 Pantoprazole Sodium 40 mg DAILY 09/10/25 09:00 10/10/25 08:59 09/10/25 09:06 Heparin Sodium (Porcine) 5,000 unit Q12H 09/09/25 23:00 10/09/25 22:59 09/09/25 23:40 Potassium Chloride 100 ml @ 50 mls/hr AD PRN 09/10/25 08:00 10/10/25 07:59 09/10/25 09:06 Magnesium Sulfate 50 ml @ 0 mls/hr PROTOCOL PRN 09/10/25 08:00 10/10/25 07:59 Tramadol HCl 50 mg Q8H5 PRN 09/10/25 17:00 09/15/25 16:59 09/10/25 21:38 Gabapentin 100 mg Q8H5 09/10/25 21:00 10/10/25 20:59 09/10/25 20:02 Methocarbamol 500 mg TID 09/10/25 21:00 10/10/25 20:59 09/10/25 20:01 Docusate Sodium 100 mg BID PRN 09/10/25 17:00 10/10/25 16:59 VITAL SIGNS Vital Signs Date Time Temp Pulse Resp B/P (MAP) Pulse Ox O2 Delivery O2 Flow Rate FiO2 09/10/25 20:00 97.9 58 16 141/71 100 Room Air 09/10/25 16:15 63 18 138/70 98 Room Air 09/10/25 15:45 57 18 140/72 100 Nasal Cannula 2.0 09/10/25 15:15 55 18 139/77 99 Nasal Cannula 2.0 09/10/25 14:45 98.1 61 20 147/78 93 Nasal Cannula 2.0 09/10/25 14:45 97.7 68 20 122/71 95 Room Air 09/10/25 14:40 56 21 124/62 95 Room Air 09/10/25 14:35 56 22 127/62 96 Nasal Cannula 2.0 09/10/25 14:30 57 20 131/64 95 Nasal Cannula 2.0 09/10/25 14:25 55 22 128/69 96 Nasal Cannula 2.0 09/10/25 14:20 57 22 122/64 96 Nasal Cannula 3.0 09/10/25 14:15 56 20 129/60 95 Nasal Cannula 3.0 09/10/25 14:10 63 22 121/62 96 Nasal Cannula 3.0 09/10/25 14:05 64 22 128/65 96 Nasal Cannula 3.0 09/10/25 14:00 64 23 126/65 100 Nonrebreathing Mask 10.0 09/10/25 13:55 66 22 126/64 100 Nonrebreathing Mask 10.0 09/10/25 13:50 59 23 120/61 100 Nonrebreathing Mask 10.0 09/10/25 13:45 97.5 61 24 123/57 100 Nonrebreathing Mask 10.0 09/10/25 11:39 98.1 46 19 132/71 99 Room Air 09/10/25 11:20 98.1 47 18 132/71 99 Room Air 09/10/25 10:04 100 Room Air* 0 21 09/10/25 07:37 97.9 51 19 134/71 100 Room Air 09/10/25 04:00 97.5 52 16 126/66 95 Room Air 09/09/25 23:58 98.1 54 16 129/85 99 Room Air 09/09/25 23:50 Room Air* 0 21 09/09/25 23:45 98.1 67 18 135/72 98 Room Air* 0 21 PHYSICAL EXAM Physical Exam Dictation VITAL SIGNS REVIEWED GENERAL APPEARANCE: ALERT, ORIENTED X 3, MODERATE TO SEVERE ACUTE DISTRESS, WELL DEVELOPED, NOURISHED. OBESE HEAD AND FACE: NON-TRAUMATIC. EYES: PERRL, PINK CONJUNCTIVAS, EYELID NO TRAUMA, ANTERIOR CHAMBER WITH ARCUS SENILIS. EARS: PINNAS INTACT AND NO SIGNS OF TRAUMA OR ERYTHEMA EAR CANALS CLEAR AND NO DISCHARGE TM NO ERYTHEMA NOSE: NO DISCHARGE, NO BLEEDING. OROPHARYNX: MOUTH NORMAL, TONGUE PINK, PHARYNX CLEAR,NO ERYTHEMA, TONSILS NO EXUDATES, NO ABSCESSES NOTED, MUCOUS MEMBRANE MOIST NECK: SUPPLE, NON-TENDER, NO THYROMEGALY, NO MASSES, NO JVD, NO BRUITS BREAST:DEFERRED CHEST:NO TENDERNESS, NO CREPITUS, NO PARADOXICAL MOVEMENT, NO RETRACTIONS LUNGS:CLEAR, WELL-VENTILATED, SYMMETRIC, NO RALES, NO WHEEZING, NO RHONCHI, NO STRIDOR, GOOD BREATH SOUNDS BILATERALLY HEART: REGULAR RATE, REGULAR RHYTHM, NO MURMUR, NO GALLOPS VASCULAR: NO PERIPHERAL EDEMA, ABDOMEN: SOFT, POSITIVE BOWEL SOUNDS, NONDISTENDED, NO GUARDING, MODERATE EPIGASTRIC TENDERNESS WITH PALPATION. POSITIVE RIGHT CVAT RECTAL: DEFERRED GENITAL: DEFERRED NEUROLOGICAL: NORMAL SPEECH, MOTOR FUNCTION INTACT, SENSORY FUNCTION INTACT MUSCULOSKELETAL: NECK NONTENDER, FULL RANGE OF MOTION, BACK NONTENDER, FULL RANGE OF MOTION, EXTREMITIES: NONTENDER, FULL RANGE OF MOTION SKIN: COLOR PINK, DRY, NO TURGOR, NO RASH, NO LACERATIONS, NO ABRASIONS, NO CONTUSIONS. LYMPHATIC: DEFERRED LABORATORY RESULTS Laboratory Tests 09/09/25 19:10: Urine Color YELLOW, Urine Appearance CLEAR, Urine pH 6.0, Urine Specific Unity 1.033, Urine Protein 20, Urine Glucose (UA) NEGATIVE, Urine Ketones NEGATIVE, Urine Occult Blood SMALL, Urine Nitrate NEGATIVE, Urine Bilirubin NEGATIVE, Urine Urobilinogen 0.2, Urine Leukocyte Esterase NEGATIVE, Urine RBC 6-10, Urine WBC 2-5, Urine Squamous Epithelial Cells FEW, Urine Bacteria RARE 09/09/25 19:20: White Blood Count 17.2, Red Blood Count 4.94, Hemoglobin 13.2, Hematocrit 39.3, Mean Corpuscular Volume 79.6, Mean Corpuscular Hemoglobin 26.7, Mean Corpuscular Hemoglobin Concent 33.6, Red Cell Distribution Width 13.6, Platelet Count 406, Mean Platelet Volume 11.3, Immature Granulocyte % (Auto) 0.3, Neutrophils (%) (Auto) 80.1, Lymphocytes (%) (Auto) 13.2, Monocytes (%) (Auto) 5.5, Eosinophils (%) (Auto) 0.6, Basophils (%) (Auto) 0.3, Neutrophils # (Auto) 13.7, Lymphocytes # (Auto) 2.3, Monocytes # (Auto) 0.9, Eosinophils # (Auto) 0.11, Basophils # (Auto) 0.06, Absolute Immature Granulocyte (auto 0.05, Nucleated Red Blood Cells 0.0, Sodium Level 139, Potassium Level 3.3, Chloride Level 103, Carbon Dioxide Level 29, Blood Urea Nitrogen 8, Creatinine 0.6, Glomerular Filtration Rate Calc 126, Random Glucose 114, Total Calcium 9.2, Lipase 29, Serum Test, Qualitative NEGATIVE 09/09/25 20:14: Lactic Acid Level 1.8, Total Bilirubin 0.6, Direct Bilirubin 0.1, Aspartate Amino Transf (AST/SGOT) 30, Alanine Aminotransferase (ALT/SGPT) 30, Alkaline Phosphatase 79, Total Protein 7.4, Albumin 3.6 09/10/25 07:13: White Blood Count 12.0, Red Blood Count 4.50, Hemoglobin 12.3, Hematocrit 37.0, Mean Corpuscular Volume 82.2, Mean Corpuscular Hemoglobin 27.3, Mean Corpuscular Hemoglobin Concent 33.2, Red Cell Distribution Width 13.9, Platelet Count 372, Mean Platelet Volume 11.4, Immature Granulocyte % (Auto) 0.3, Neutrophils (%) (Auto) 71.7, Lymphocytes (%) (Auto) 17.9, Monocytes (%) (Auto) 7.9, Eosinophils (%) (Auto) 1.8, Basophils (%) (Auto) 0.4, Neutrophils # (Auto) 8.6, Lymphocytes # (Auto) 2.1, Monocytes # (Auto) 0.9, Eosinophils # (Auto) 0.22, Basophils # (Auto) 0.05, Absolute Immature Granulocyte (auto 0.04, Nucleated Red Blood Cells 0.0, Sodium Level 142, Potassium Level 3.2, Chloride Level 103, Carbon Dioxide Level 32, Blood Urea Nitrogen 9, Creatinine 0.6, Glomerular Filtration Rate Calc 126, Random Glucose 112, Total Calcium 8.7, Lipase 56, Total Bilirubin 0.6, Aspartate Amino Transf (AST/SGOT) 117, Alanine Aminotransferase (ALT/SGPT) 137, Alkaline Phosphatase 104, Total Protein 7.3, Albumin 3.4, Magnesium Level 2.20 Microbiology Date/Time Source Procedure Growth Status 09/09/25 20:14 Blood Blood Culture - Preliminary NO GROWTH AFTER 24 HOURS Resulted 09/09/25 19:40 Blood Blood Culture - Preliminary NO GROWTH AFTER 24 HOURS Resulted PROBLEM LIST: (1) Acute cholecystitis ICD Codes: K81.0 - Acute cholecystitis (2) Leukocytosis ICD Codes: D72.829 - Elevated white blood cell count, unspecified (3) Abdominal pain ICD Codes: R10.9 - Unspecified abdominal pain PLAN Admit IV antibiotics NPO consult surgery LIZZ MYERS MD Sep 10, 2025 21:51
--- NOTE | 2025-09-10 23:36 | NUR ---
PATIENT REFUSED HEPARIN DOSE AT THIS TIME EDUCATED HER ON USES AND OF MEDICATION, SHE STATES "I REALLY DON'T WANT A SHOT IN MY STOMACH".
[2025-09-11] VITALS: BP 128/67; PULSE 51; RESP 17; TEMP 98.3
[2025-09-11 04:00] VITALS: BP 122/71; PULSE 44; RESP 16; TEMP 98.3
[2025-09-11 07:42] VITALS: O2SAT 100
[2025-09-11 07:47] VITALS: BP 137/72; PULSE 50; RESP 19; TEMP 97.6
--- NOTE | 2025-09-11 09:40 | NUR ---
ATTEMPTED TO MAKE F/U APPOINTMENT WITH DR FERNÁNDEZ X3. ONLY ABLE TO LEAVE CALL BACK NUMBER TO SCHEDULE F/U APPOINTMENT
--- NOTE | 2025-09-11 10:22 | NUR ---
DC INSTRUCTIONS GIVEN AND ACKNOWLEDGED BY PATIENT AND MOTHER. IV REMOVED
--- NOTE | 2025-09-11 21:52 | DS ---
Discharge Summary DIAGNOSE(S): [Acute cholecystitis] HOSPITAL COURSE SUMMARY: [Patient did well with bowel rest antibiotic underwent cholecystectomy without complication tolerated diet and is discharged] ASSISTANT BRANCH MANAGER(S): [] PROCEDURE(S)/TREATMENT(S): [] PROBLEM(S): [] FOLLOW-UP TEST(S): [None] DISCHARGE INSTRUCTIONS: [Follow up with PCP in two days] Home Meds Discontinued Reported Medications Amoxicillin (Amoxicillin) 500 Mg Tablet, 500 MG PO TID for RECENT TOOTH EXTRACTION for 10 Days, TAB 05/27/20 LIZZ MYERS MD Sep 11, 2025 21:52
--- NOTE | 2025-09-13 10:41 | HMCIMG ---
INTRAOPERATIVE CHOLANGIOGRAM INDICATION: OR laparoscopic cholecystectomy TECHNIQUE: 3 matrix spot films submitted using the C-arm for intraoperative laparoscopic cholangiogram. COMPARISON: None FINDINGS: A catheter is seen entering the cystic duct. Surgical clips are present in the gallbladder fossa. Contrast fills the common hepatic and common bile duct with normal flow of the contrast into the duodenal sweep without evidence of obstruction, strictures or choledocholithiasis. Contrast is also present in the proximal right and left hepatic ducts. IMPRESSION: Normal intraoperative cholangiogram as reported.
== END 2025-09-11 11:00 | disposition home or self-care (01) | DRG 419 ==
LOC: EDH 18:58 → UNDOADMIN 18:59 → EDHIP 18:59 → UNDOADMIN 22:35 → 1MS 23:52 → EDHIP 23:52
PROVIDERS: ADMIT Internal Medicine; ATTEND Internal Medicine
PROC: BF121ZZ Fluoroscopy of Gallbladder using Low Osmolar Contrast (ICD-10-PCS; 2025-09-10)
PROC: 0FT44ZZ Resection of Gallbladder, Percutaneous Endoscopic Approach (ICD-10-PCS; principal; 2025-09-10 12:00)
DX: K80.12 Calculus of gallbladder with acute and chronic cholecystitis without obstruction (principal); K57.30 Diverticulosis of large intestine without perforation or abscess without bleeding; Z90.49 Acquired absence of other specified parts of digestive tract; K76.0 Fatty (change of) liver, not elsewhere classified
CPT/HCPCS: 36415; 74176; 74300; 76705; 80048; 80053; 80076; 81001; 83605; 83690; 83735; 84703; 85025; 87040; 96365; 96375; 99285; C1758; G0378; J0169; J1644; J1885; J2250; J2270; J2405; J2470; J2543; J2704; J2765; J2795; J3010; J3480; J3490; J7030; Q9967; A4213; A4215; A4216; A4222; A4223; A4600; A4649; A4930; J0665; J0690; J1308